=== PATIENT | female | born 1975 | race Caucasian/White ===

== ENCOUNTER 2016-08-23 08:20 | Emergency (ER) | payer OTHER ==
[~2016-08-23] VITALS: Ht 162.6 cm; Wt 94.3 kg
[~2016-08-23 08:20] MED LIST: NAPR500 PO; ROBA750T3 PO
[2016-08-23 08:24] VITALS: RESP 16
[2016-08-23 08:30] VITALS: BP 165/102; PULSE 91; RESP 16; TEMP 98.2; O2SAT 98
--- NOTE | 2016-08-23 09:25 | PD ---
HPI . Needle stick Chief Complaint: Exposure to Blood/Body Fluids Time Seen by Provider: 08:24 Travel History International Travel<30 days: No Contact w/Intl Traveler<30days: No Traveled to known affect area: No History of Present Illness HPI The patient is a nurse in the ER. She had started an IV on a patient and was cleaning up. The needle for the IV had not appropriately retracted into the safety cover. She was inadvertently stuck with the needle. Unfortunately, the patient is here and has consented to HIV, hepatitis B and hepatitis C screening. The injury occurred to the patient's left fourth finger. The patient's tetanus is up-to-date. She has been vaccinated for hepatitis B but states that she is a nonresponder. PFSH Past Medical History Hx Anticoagulant Therapy: No Cardiovascular Problems: Yes (HTN, MITRAL VALVE PROLAPSE) Diabetes: No Diminished Hearing: No Hypertension: Yes Kidney Stones: Yes Tetanus Vaccination: < 5 Years ?: Not LMP: 07/26/16 Past Surgical History Cholecystectomy: Yes Social History Alcohol Use: Yes Tobacco Use: No Substance Use: No Allergies-Medications (Allergen,Severity, Reaction): Coded Allergies: Rylan (Verified Allergy, Intermediate, 08/23/16) Phenergan (Verified Allergy, Intermediate, Hives, 08/23/16) Tigan (Verified Allergy, Intermediate, Hives, 08/23/16) Reported Meds & Prescriptions Reported Meds & Active Scripts Active No Active Prescriptions or Reported Medications Review of Systems Skin: Positive Other (needle stick) Physical Exam Narrative GENERAL: Awake and alert and in no acute distress. SKIN: Warm and dry. Puncture wound on the left fourth finger. CARDIOVASCULAR: Regular rate and rhythm. RESPIRATORY: No accessory muscle use. MUSCULOSKELETAL: No obvious deformities. No edema. NEUROLOGICAL: Awake and alert. No obvious cranial nerve deficits. Motor grossly within normal limits. Normal speech. PSYCHIATRIC: Appropriate mood and affect; insight and judgment normal. Data Data Last Documented VS Vital Signs Date Time Temp Pulse Resp B/P Pulse Ox O2 Delivery O2 Flow Rate FiO2 08/23/16 09:39 142/84 08/23/16 08:30 98.2 91 16 98 Room Air MDM Medical Decision Making Medical Screen Exam Complete: Yes Emergency Medical Condition: Yes Differential Diagnosis Differential diagnosis includes needlestick by clean needle, needle stick by a dirty needle from a non-HIV or hepatitis infected patient, needle stick by a dirty needle from an HIV or hepatitis infected patient. Narrative Course Patient presents following a dirty needle stick. The source patient is known and has consented to testing. The source patient's HIV test was negative. Diagnosis Primary Impression: Needle stick injury of finger of left hand Qualified Code: S61.239A - Needle stick injury of finger of left hand, initial encounter Patient Instructions: General Instructions, Needle Stick Injuries (ED) Departure Forms: Tests/Procedures Scripts No Active Prescriptions or Reported Meds Disposition: DISCHARGE HOME Condition: Stable Adrienne Long MD Aug 23, 2016 09:25
[2016-08-23 09:26] VITALS: BP 146/102
[2016-08-23 09:39] VITALS: BP 142/84
== END 2016-08-23 09:46 | disposition home or self-care (01) ==
LOC: PHED 08:20
DX: S61.239A Puncture wound without foreign body of unspecified finger without damage to nail, initial encounter (principal); I10 Essential (primary) hypertension; W46.1XXA Contact with contaminated hypodermic needle, initial encounter; Y93.F9 Activity, other caregiving; Y92.230 Patient room in hospital as the place of occurrence of the external cause; Y99.0 Civilian activity done for income or pay
CPT/HCPCS: 99283

== ENCOUNTER → 2017-02-08 | Outpatient (CLI) | payer OTHER ==
[2017-02-08 13:18] LABS: AUTOMATED NEUTROPHIL # 4.1 TH/MM3 (1.8-7.7); BASOPHIL % 0.5 % (0.0-2.0); EOSINOPHIL # 0.1 TH/MM3 (0-0.4); HEMATOCRIT 37.9 % (35.0-46.0); HEMO FLAGS DIFF FINAL; LYMPH % 32.6 % (9.0-44.0); LYMPHOCYTE # 2.3 TH/MM3 (1.0-4.8); MEAN CELL VOLUME 89.3 FL (80.0-100.0); MEAN CORPUSCULAR HEMOGLOBIN 30.1 PG (27.0-34.0); MEAN CORPUSCULAR HGB CONC 33.7 % (32.0-36.0); MONO % 5.9 % (0.0-8.0); PLATELET COUNT 358 TH/MM3 (150-450); RED BLOOD COUNT 4.24 MIL/MM3 (4.00-5.30); RED CELL DISTRIBUTION WIDTH 12.9 % (11.6-17.2); WHITE BLOOD COUNT 6.9 TH/MM3 (4.0-11.0)
[2017-02-08 13:22] LABS: ALT (GPT) 24 U/L (10-53); ANION GAP 9 MEQ/L (5-15); AST (GOT) 16 U/L (15-37); BICARBONATE 25.4 MEQ/L (21.0-32.0); BLOOD UREA NITROGEN 13 MG/DL (7-18); CHLORIDE 106 MEQ/L (98-107); GLOMERULAR FILTRATION RATE 92 ML/MIN (>89); GLUCOSE,FASTING 86 MG/DL (74-99); POTASSIUM 4.3 MEQ/L (3.5-5.1); SODIUM (NA) 140 MEQ/L (136-145)
[2017-02-08 13:32] LABS: ALKALINE PHOSPHATASE 76 U/L (45-117); HDL CHOLESTEROL 35.3 MG/DL (40.0-60.0); LDL CHOLESTEROL 89 MG/DL (0-99); TOTAL BILIRUBIN ADULT 0.4 MG/DL (0.2-1.0)
== END ==
LOC: PLAB 10:34
PROVIDERS: ATTEND Student in an Organized Health Care Education/Training Program
DX: R00.2 Palpitations (principal); Z13.220 Encounter for screening for lipoid disorders
CPT/HCPCS: 80053; 80061; 84443; 85025

== ENCOUNTER 2017-10-02 04:45 | Emergency (ER) | payer OTHER ==
[~2017-10-02] VITALS: Ht 162.6 cm; Wt 98.9 kg
[2017-10-02 04:48] VITALS: BP 183/112; PULSE 112; RESP 16; TEMP 97.7; O2SAT 99
[2017-10-02] MEDS ORDERED: ATEN50TA PO (04:52)
[2017-10-02] MEDS ORDERED: LOSA50TA PO (04:52)
[2017-10-02] MEDS ORDERED: HYDROmorphone HCL PF 2 MG/ML VIAL IV PUSH ONE ×2 (05:30→06:15)
[2017-10-02] MEDS ORDERED: ONDANSETRON HCL 4 MG/2 ML VIAL IV ONE ×2 (05:30→06:45)
[2017-10-02] MEDS ORDERED: methylPREDNISolone SOD SUCC 125 MG/2 ML VIAL IV PUSH ONE (06:00)
--- NOTE | 2017-10-02 06:06 | RADRPT ---
EXAM DATE/TIME: 10/02/2017 05:41 [facility] COMPARISON: No previous studies available for comparison. INDICATIONS : Right shoulder pain with arm weakness. RADIATION DOSE: 26.53 CTDIvol (mGy) MEDICAL HISTORY : Cardiovascular disease. Hypertension. Renal calculi. SURGICAL HISTORY : None. ENCOUNTER: Initial ACUITY: 1 day PAIN SCALE: 6/10 LOCATION: Right shoulder TECHNIQUE: Volumetric scanning of the cervical spine was performed. Multiplanar reconstructions in the sagittal, coronal and oblique axial planes were performed. Using automated exposure control and adjustment o f the mA and/or kV according to patient size, radiation dose was kept as low as reasonably achievable to obtain optimal diagnostic quality images. DICOM format image data is available electronically f or review and comparison. FINDINGS: CT of the cervical spine was performed in sagittal and axial planes. There is straightening of the no rmal cervical lordosis which may be secondary positioning or spasm. No focal areas of marrow replacem ent are identified. The craniocervical junction appears normal. Axial images were performed from C2-C 3 through C7-T1. C2-C3: No significant abnormalities identified. C3-C4: No significant abnormalities identified. C4-C5: No significant abnormalities identified. C5-C6: No significant abnormalities identified. C6-C7: No significant abnormalities identified. C7-T1: No significant abnormalities identified. CONCLUSION: 1. Reversal of the normal cervical lordosis. There is no evidence of acute fracture. Clarence Cespedes MD on October 02, 2017 at 6:03 Board Certified Radiologist. This report was verified electronically.
--- NOTE | 2017-10-02 06:09 | RADRPT ---
EXAM DATE/TIME: 10/02/2017 05:55 [facility] COMPARISON: No previous studies available for comparison. INDICATIONS : Right shoulder pain. No known trauma. MEDICAL HISTORY : None. SURGICAL HISTORY : Cholecystectomy. ENCOUNTER: Initial ACUITY: 1 day PAIN SCORE: 8/10 LOCATION: Right upper extremity FINDINGS: Multiple view examination of the right shoulder demonstrates no evidence of fracture or dislocation. The glenohumeral and acromioclavicular joints are maintained. There is normal range of motion betwe en internal and external rotation. Bony mineralization is normal. CONCLUSION: 1. Negative examination of the shoulder. Clarence Cespedes MD on October 02, 2017 at 6:07 Board Certified Radiologist. This report was verified electronically.
[2017-10-02 06:18] VITALS: BP 142/81; PULSE 103; RESP 18; O2SAT 99
--- NOTE | 2017-10-02 06:19 | PD ---
HPI Chief Complaint: Musculoskeletal Complaint Time Seen by Provider: 05:22 Travel History International Travel<30 days: No Contact w/Intl Traveler<30days: No Traveled to known affect area: No History of Present Illness HPI The patient is a 41-year-old female that it is an 8/10 and throbbing and a "toothache" like pain. She has never had this problem before. Movements of the neck do not affect the pain. She denies any trauma. PFSH Past Medical History Hx Anticoagulant Therapy: No Cardiovascular Problems: Yes (HTN, MITRAL VALVE PROLAPSE) Diabetes: No Diminished Hearing: No Hypertension: Yes Kidney Stones: Yes Influenza Vaccination: Yes ?: Not LMP: 09/21/17 : 3 Para: 2 Miscarriage: 1 Past Surgical History Cholecystectomy: Yes Social History Alcohol Use: Yes Tobacco Use: No Substance Use: No Allergies-Medications (Allergen,Severity, Reaction): Coded Allergies: juan (Unverified Allergy, Intermediate, 10/02/17) promethazine (Unverified Allergy, Intermediate, Hives, 10/02/17) trimethobenzamide (Unverified Allergy, Intermediate, Hives, 10/02/17) Reported Meds & Prescriptions Reported Meds & Active Scripts Active Percocet (Oxycodone-Acetaminophen) 5-325 mg Tab 1 Tab PO Q6H PRN Reported Losartan (Losartan Potassium) 50 Mg Tab 50 Mg PO DAILY Atenolol 50 Mg Tab 50 Mg PO DAILY Review of Systems Except as stated in HPI: all other systems reviewed are Neg Physical Exam Narrative GENERAL: Well-nourished, well-developed patient in moderate apparent distress with her right shoulder/right arm pain. Her vital signs show heart rate of 112 and blood pressure 183/112 but are otherwise normal. SKIN: Focused skin assessment warm/dry. No skin rash is seen. HEAD: Normocephalic. EYES: No scleral icterus. No injection or drainage. NECK: Supple, trachea midline. No JVD or lymphadenopathy. No neck tenderness is present and I cannot reproduce the patient's pain by pressing on or around the cervical spine. CARDIOVASCULAR: Regular rate and rhythm without murmurs, gallops, or rubs. RESPIRATORY: Breath sounds equal bilaterally. No accessory muscle use. GASTROINTESTINAL: Abdomen soft, non-tender, nondistended. MUSCULOSKELETAL: No cyanosis, or edema. There is minimal tenderness along the suprascapularis muscle but no other tenderness of the neck or shoulder. BACK: Nontender without obvious deformity. No CVA tenderness. Data Data Last Documented VS Vital Signs Date Time Temp Pulse Resp B/P (MAP) Pulse Ox O2 Delivery O2 Flow Rate FiO2 10/02/17 10:15 98 18 139/92 (108) 99 10/02/17 06:18 Room Air 10/02/17 04:48 97.7 Orders Orders Hydromorphone Pf Inj (Dilaudid Pf Inj) (10/02/17 05:30) Ondansetron Inj (Zofran Inj) (10/02/17 05:30) Ct Cerv Spine W/O Contrast (10/02/17 05:24) Splint Or Brace Apply/Monitor (10/02/17 05:24) Shoulder, Complete (>2vws) (10/02/17 05:27) Methylprednisolone So Succ Inj (Solumedr (10/02/17 06:00) Hydromorphone Pf Inj (Dilaudid Pf Inj) (10/02/17 06:15) Ondansetron Inj (Zofran Inj) (10/02/17 06:45) Mri C Spine W/O Contrast (10/02/17 07:08) Collar Soft Cervical (10/02/17 ) Sling Cradle Arm (10/02/17 ) Ed Discharge Order (10/02/17 09:10) Acetamin-Hydrocod 325-5 Mg ([place] 5-325 (10/02/17 09:45) MDM Medical Decision Making Medical Screen Exam Complete: Yes Emergency Medical Condition: Yes Medical Record Reviewed: Yes Interpretation(s) The CT of the cervical spine shows reversal of the normal cervical lordosis but no evidence of acute fracture. The right shoulder x-rays are negative. Differential Diagnosis Fracture shoulder, fracture neck, cervical strain, cervical radiculopathy, nerve impingement right shoulder Narrative Course The patient was left with Dr. Madsen, the patient requested an MRI which we will do. Physician Communication Physician Communication I discussed the patient with Dr. Madsen. Scripts Oxycodone-Acetaminophen (Percocet) 5-325 mg Tab 1 TAB PO Q6H Y for PAIN, #10 TAB 0 Refills Prov: Gildardo Madsen MD 10/02/17 Hernan Hamm MD Oct 02, 2017 06:19
--- NOTE | 2017-10-02 08:43 | RADRPT ---
EXAM DATE/TIME: 10/02/2017 08:18 [facility] COMPARISON: No previous studies available for comparison. INDICATIONS : Right arm pain and weakness. MEDICAL HISTORY : Hypertension. Renal calculi. SURGICAL HISTORY : Cholecystectomy. Carpal tunnel release. ENCOUNTER: Initial ACUITY: 1 day PAIN SCORE: 2/10 LOCATION: Right Paraspinal TECHNIQUE: Multiplanar, multisequence MRI examination of the cervical spine was performed. FINDINGS: VERTEBRAE: Normal vertebral body height. Homogeneous marrow signal. ALIGNMENT: No evidence of subluxation. CORD: Normal configuration and signal. POST FOSSA: The cerebellar tonsils are normal in position. C2-C3: The thecal sac has a normal configuration. There is no evidence of disc herniation or spinal canal s tenosis. The neural foramina are patent bilaterally. C3-C4: The thecal sac has a normal configuration. There is no evidence of disc herniation or spinal canal s tenosis. The neural foramina are patent bilaterally. C4-C5: The thecal sac has a normal configuration. There is no evidence of disc herniation or spinal canal s tenosis. The neural foramina are patent bilaterally. C5-C6: The thecal sac has a normal configuration. There is no evidence of disc herniation or spinal canal s tenosis. The neural foramina are patent bilaterally. C6-C7: The thecal sac has a normal configuration. Very minimal airspace region is evident. There is no evid ence of disc herniation or spinal canal stenosis. The neural foramina are patent bilaterally. C7-T1: The thecal sac has a normal configuration. There is no evidence of disc herniation or spinal canal s tenosis. The neural foramina are patent bilaterally. CONCLUSION: Negative MR of the cervical spine for significant neural impingement. I do not see etiology of patie nt's right arm weakness. Toribio Landry MD FACR on October 02, 2017 at 8:40 Board Certified Radiologist. This report was verified electronically.
--- NOTE | 2017-10-02 09:09 | PD ---
Data Data Last Documented VS Vital Signs Date Time Temp Pulse Resp B/P (MAP) Pulse Ox O2 Delivery O2 Flow Rate FiO2 10/02/17 06:18 103 18 142/81 (101) 99 Room Air 10/02/17 04:48 97.7 Orders Orders Hydromorphone Pf Inj (Dilaudid Pf Inj) (10/02/17 05:30) Ondansetron Inj (Zofran Inj) (10/02/17 05:30) Ct Cerv Spine W/O Contrast (10/02/17 05:24) Splint Or Brace Apply/Monitor (10/02/17 05:24) Shoulder, Complete (>2vws) (10/02/17 05:27) Methylprednisolone So Succ Inj (Solumedr (10/02/17 06:00) Hydromorphone Pf Inj (Dilaudid Pf Inj) (10/02/17 06:15) Ondansetron Inj (Zofran Inj) (10/02/17 06:45) Mri C Spine W/O Contrast (10/02/17 07:08) Collar Soft Cervical (10/02/17 ) Sling Cradle Arm (10/02/17 ) MDM Supervised Visit with AMPARO: No Narrative Course This case is checked out to me by Dr. Hamm at 7 AM. She was awaiting MRI of the cervical spine That is now done and read as normal. I reviewed the entirety of her workup with her and answered her questions. She does feel improved but not completely asymptomatic No cord compression is noted Stable for outpatient follow-up I wrote her 10 Percocet for pain relief Diagnosis Primary Impression: Radiculopathy affecting upper extremity Additional Instruction: The patient was warned about potential sedation for the medications they will receive on prescription. The patient was advised to follow up with their physician and return if they worsen. Med/Other Pt SpecificInfo: Prescription(s) given Disposition: 01 DISCHARGE HOME Condition: Stable Gildardo Madsen MD Oct 02, 2017 09:09
[2017-10-02] MEDS ORDERED: PERC5TAB12 PO (09:10)
[2017-10-02] MEDS ORDERED: ACETAMINOPHEN/HYDROcodone 325 MG/5 MG TAB PO ONE (09:45)
[2017-10-02 09:49] VITALS: RESP 18
[2017-10-02 10:15] VITALS: BP 139/92
== END 2017-10-02 10:18 | disposition home or self-care (01) ==
LOC: PHED 04:45
DX: M54.10 Radiculopathy, site unspecified (principal); I34.1 Nonrheumatic mitral (valve) prolapse; I10 Essential (primary) hypertension; Z87.442 Personal history of urinary calculi
CPT/HCPCS: 72125; 72141; 73030; 96374; 96375; 96376; 99285; J1170; J2405; J2930; L0120